=== PATIENT | male | born 1950 | race Caucasian/White ===

== ENCOUNTER 2021-01-01 10:47 | Emergency (ER) | payer MEDICARE ==
[2021-01-01 11:50] LABS: HEMOGLOBIN 14.7 gm/dl (14.0-17.5); RED BLOOD COUNT 4.67 M/UL (4.20-5.50); WHITE BLOOD COUNT 6.5 K/UL (4.5-11.0)
[2021-01-01 12:15] LABS: BUN/CREATININE RATIO 9 (0-10)
== END 2021-01-01 16:20 | disposition home or self-care (01) ==
LOC: ER1 10:47
PROVIDERS: Physician Assistant
DX: U07.1 COVID-19 (principal)
CPT/HCPCS: 71045; 80053; 82550; 82553; 83605; 83615; 83874; 83880; 84484; 85025; 86140; 87040; 93005; 94664; 99285; J7040; Q9967; U0002